=== PATIENT | male | born 1990 | race Caucasian/White ===

== ENCOUNTER 2019-09-02 19:55 | Emergency (ER) | payer SELFPAY ==
[2019-09-02 20:24] VITALS: BP 139/86; PULSE 87; RESP 18; TEMP 36.6; O2SAT 98; BMI 20.5
--- NOTE | 2019-09-02 20:55 | ED_ITS ---
HPI - Wound/Laceration General: Chief Complaint: Wound/Laceration Stated Complaint: hand injury Time Seen by Provider: 09/02/19 20:48 History of Present Illness: HPI narrative: Patient was using a screwdriver tonight while working on a car and it slipped off tires during pump and stabbed him in his left hand. Patient had a lot of bleeding at that time that was squirting. Bleeding is now controlled head is stopped but he does have pain down the middle of his hand. Tetanus is up-to-date it was just 3 years ago Onset (ago): hour(s) Extremity Location: Left: hand Place: home Patient tetanus UTD: Yes Context: accidental Associated symptoms: Reports no associated symptoms; Denies chills, fever(s), nausea or vomiting Treatments prior to arrival: bandage Review of Systems Narrative: Puncture wound left hand near base of thumb Const: Denies: fever, chills or body aches Eyes: Denies: change in vision or blurry vision ENMT: Denies: throat pain or nasal congestion Card: Denies: chest pain or shortness of breath on exertion Resp: Denies: shortness of breath, productive cough or non-productive cough GI: Denies: abdominal pain, nausea or vomiting : Denies: difficulty urinating Musc: Denies: extremity pain Skin/Breast: Denies: rash Neuro: Denies: headache Psych: Denies: anxiety or depression Joshua/Lymph: Denies: easy bruising Physical Exam Const: COMMON NORMALS: no apparent distress, average body habitus and oriented x3 HENMT: COMMON NORMALS: normocephalic HEAD & SCALP: normal to inspection and normocephalic FACE & SINUS: normal facial exam Eye: COMMON NORMALS: conjunctivae normal GENERAL EYE: normal appearance of both eyes CONJUNCTIVA: Yes conjunctivae normal Neck/C-Spine: COMMON NORMALS: no JVD Chest: COMMONS NORMALS: inspection of chest normal Resp: COMMON NORMALS: normal respiratory effort and clear to auscultation bilaterally AUSCULTATION: clear to auscultation bilaterally Cardio: COMMON NORMALS: no JVD, regular rate and regular rhythm RATE: regular rate RHYTHM: regular rhythm GI: COMMON NORMALS: normal to inspection, nondistended, normoactive bowel sounds Extremity: COMMON NORMALS: normal to inspection and full ROM OTHER: Patient has open wound is not bleeding between the thumb and the index finger on the left hand and the soft tissue. Has full range of motion his hand but he says it does hurt when he moves his hand and squeezes not down in the center of his hand. Neuro: COMMON NORMALS: oriented x3 Course Vital Signs: Vital signs: Vital Signs Temperature 97.8 F 09/02/19 20:24 Pulse Rate 87 09/02/19 20:24 Respiratory Rate 18 09/02/19 20:24 Blood Pressure 139/86 09/02/19 20:24 Pulse Oximetry 98 09/02/19 20:24 Discharge Plan Discharge Prescriptions: No Action No Known Home Medications RF: 0 Coding Level of Care Code ED Clinical Nurse for Raciel Botello
--- NOTE | 2019-09-02 20:55 | XR_ITS ---
WS: [id number] XR hand LT min 3V* [id number] REASON FOR EXAM: puncture wound FINDINGS: No unusual soft tissue swelling noted. There is no deformity of the phalanges, metacarpals, carpals. No definite fractures. XR/XR hand LT min 3V* [id number] IMPRESSION: Negative left hand.
[2019-09-02 21:15] VITALS: BP 143/77; PULSE 82; RESP 18; TEMP 36.7; O2SAT 97
[2019-09-02] MEDS: cephALEXin 500 mg Capsule PO (21:30)
== END 2019-09-02 21:47 | disposition home or self-care (01) ==
PROVIDERS: Emergency Provider Nurse Practitioner Family
DX: S61.432A Puncture wound without foreign body of left hand, initial encounter (principal); W27.8XXA Contact with other nonpowered hand tool, initial encounter; Y92.009 Unspecified place in unspecified non-institutional (private) residence as the place of occurrence of the external cause
CPT/HCPCS: 73130; 99281; 99283

== ENCOUNTER 2021-07-25 03:35 | Emergency (ER) | payer SELFPAY ==
[2021-07-25 03:46] VITALS: BP 149/83; PULSE 87; RESP 16; TEMP 36.1; O2SAT 98; BMI 20.5
--- NOTE | 2021-07-25 03:53 | W.ED.WOUNDLC ---
HPI - Wound/Laceration General: Chief Complaint: Wound/Laceration Stated Complaint: Injury Eyebrow above rt eye Time Seen by Provider: 07/25/21 03:36 Source: patient Mode of arrival: ambulatory Limitations: no limitations History of Present Illness: HPI narrative: 30-year-old male states that he had fell hit his head on the corner of a door just roughly 30 minutes to an hour ago. Does have a laceration over his right eyebrow he denies any loss conscious denies any head pain denies any neck pain. He states his last tetanus was 2 years ago denies any other injuries from the fall. Associated symptoms: Denies chills, fever(s), nausea or vomiting Review of Systems Const: Denies: fever(s), chills, body aches or change in appetite Eyes: Denies: blurry vision or eye discomfort ENMT: Denies: throat pain or dental pain Card: Denies: chest pain Resp: Denies: dyspnea GI: Denies: abdominal pain, nausea, vomiting or diarrhea : Denies: dysuria Musc: Denies: neck pain or back pain Skin/Breast: Denies: rash Neuro: Denies: headache(s) Psych: Denies: depression Joshua/Lymph: Denies: easy bruising All/Imm: Denies: urticaria PFSH ED PFSH: Medical History (Updated 07/25/21 @ 03:56 by Amy Sanchez MD) No pertinent past medical history Social History (Updated 07/25/21 @ 03:57 by Amy Sanchez MD) Alcohol intake: current Alcohol intake frequency: few times a month Physical Exam Const: COMMON NORMALS: no acute distress, patient oriented x3 and healthy appearing HENMT: COMMON NORMALS: normocephalic HEAD & SCALP: normocephalic HEAD IMAGES: 1. 3cm stellate laceration Eye: COMMON NORMALS: Equal, round and reactive pupils present and EOMs intact bilaterally PUPIL: Yes Equal, round and reactive pupils present Neck/C-Spine: COMMON NORMALS: full ROM and supple Chest: COMMONS NORMALS: normal inspection of the chest and normal palpation of entire chest wall Resp: COMMON NORMALS: normal respiratory effort, No retractions, No use of accessory muscles and clear to auscultation bilaterally AUSCULTATION: clear to auscultation bilaterally Cardio: COMMON NORMALS: regular rate, regular rhythm and No murmurs present (Cardio) RATE: regular rate RHYTHM: regular rhythm GI: COMMON NORMALS: Normal to inspection, nondistended, normoactive bowel sounds present, Soft to palpation, non-tender and no masses PALPATION: Yes Soft to palpation Extremity: COMMON NORMALS: normal to inspection and full ROM Neuro: COMMON NORMALS: patient oriented x3, moves all extremities and no focal motor deficits Psych: COMMON NORMALS: mental status grossly normal, Normal thought process present and cooperative THOUGHT PROCESS: Normal thought process present Skin: COMMON NORMALS: no rashes or lesions noted and no wounds GENERAL SKIN EXAM: no rashes or lesions noted Procedures Laceration Laceration 1: Site: face (eyebrow) Side (If applicable): right Size (cm): 3 Description: stellate Depth: simple, single layer Local Anesthetic: lidocaine 1% Amount of anesthesia used (mL): 4 Pre-repair: wound explored and irrigated extensively Skin layer closed with: nylon Size (cm): 6-0 Number of sutures: 5 Technique: simple, interrupted Course Vital Signs: Vital signs: Vital Signs Temperature 96.9 F L 07/25/21 03:46 Pulse Rate 87 07/25/21 03:46 Respiratory Rate 16 07/25/21 03:46 Blood Pressure 149/83 07/25/21 03:46 Pulse Oximetry 98 07/25/21 03:46 MDM - Wound/Laceration MDM Narrative: Medical decision making narrative: 30-year-old male presented here with a laceration over his right eyebrow laceration was repaired he is return in 7 days for suture removal he had no loss conscious no severe headache did not require any imaging he is stable for discharge. He is up-to-date on his tetanus as well Discharge Plan Discharge Patient Disposition: Home Clinical Impression: Eyebrow laceration Qualifiers: Encounter type: initial encounter Laterality: right Qualified Code(s): S01.111A - Laceration without foreign body of right eyelid and periocular area, initial encounter Condition: Stable Discharge Orders: Discharge ED (Routine); Ordered 07/25/21 Ordered By: Amy Sanchez Discharge Diet: Advance as tolerated Discharge Activity: Resume usual activity Patient Instructions: Laceration (ED) Activity Restrictions/Additional Instructions: suture removal in 7 days Coding Level of Care Code ED Senior Hr Generalist for Raciel Botello
== END 2021-07-25 04:07 | disposition home or self-care (01) ==
PROVIDERS: Emergency Provider Emergency Medicine
DX: S01.111A Laceration without foreign body of right eyelid and periocular area, initial encounter (principal); W19.XXXA Unspecified fall, initial encounter
CPT/HCPCS: 12013; 99282